=== PATIENT | female | born 1965 | race Caucasian/White ===

== ENCOUNTER 2020-09-14 15:11 | Emergency (ER) | payer BC, SELFPAY ==
[2020-09-14 15:12] VITALS: BP 138/83; PULSE 101; RESP 22; TEMP 37.3; O2SAT 99; BMI 25.8
[2020-09-14] MEDS: morphine 10 MG/ML Syringe 5 MG SC ×2 (16:31→18:54)
--- NOTE | 2020-09-14 17:05 | RAD_ITS ---
STUDY: X-RAY - PELVIS AND RIGHT HIP REASON FOR EXAM: Female, 55 years old. fall, pain TECHNIQUE: 3 views of the pelvis and hip. COMPARISON: None. FINDINGS: There is a non-specific bowel gas pattern. Normal visualized soft tissue structures. Normal bilateral iliac wings, sacroiliac joints and visualized sacrum. Normal bilateral superior and inferior pubic rami. Normal pubic symphysis. Normal bilateral ischial tuberosities. Normal visualized femoral head. Normal acetabulum. Normal hip joint. RAD/HIP, UNI W/ Pelvis 2-3 Views IMPRESSION: Normal x-ray examination of the pelvis and hip. Electronically Signed: Markel Zambrano MD ([place]) at 17:21 EDT , Service support ,
[2020-09-14] MEDS: Mag Hydrox/Al Hydrox/Simeth 30 ML UDC PO (18:28)
--- NOTE | 2020-09-14 18:31 | ED.RN ---
pt c/o mid gastric abd pain, dr. johnson informed, gi cocktail order.
--- NOTE | 2020-09-14 18:36 | ED.VIS.FALL ---
HPI HPI - Fall History of Present Illness Chief Complaint: Fall Informant: patient Occured/Mechanism Occurred: Today Mechanism/Context: Yes same level fall Pain/Injury Quality of Pain: Sharp Associated Symptoms Associated Symptoms: Negative for Parasthesias and Weakness Narrative Narrative: Patient was reaching out with her right foot. It stepped on a dog leash on a tile floor causing her right leg to slip forward. She felt a tearing or pulling sensation in her right buttock and hip area. It hurts to move or even bear weight. The pain was really in the process of falling and not from the impact. She never hit her head or anything else. She is not on any blood thinners. Staying still helps and motion or weightbearing makes it worse. No numbness tingling or weakness. No bowel or bladder dysfunction. PFSH PFSH Medical History Asthma Home Medications albuterol sulfate 1 - 2 puff INHALATION Q6H PRN 09/14/20 [History Last Taken Unknown] bupropion HCl [Wellbutrin XL] 300 mg PO DAILY 09/14/20 [History Last Taken Unknown] fluticasone propion-salmeterol [Advair HFA] 2 puff INHALATION BID 09/14/20 [History Last Taken Unknown] gabapentin 300 mg PO TID PRN 09/14/20 [History Last Taken Unknown] montelukast 10 mg PO DAILY 09/14/20 [History Last Taken Unknown] ondansetron HCl [Zofran] 4 mg PO Q8H PRN #10 tab 09/14/20 [Rx Last Taken Unknown] tramadol 50 mg PO Q6H PRN #12 tab 09/14/20 [Rx Last Taken Unknown] Allergy/AdvReac Type Severity Reaction Status Date / Time grass pollen Allergy Other Verified 09/14/20 15:14 oxycodone AdvReac Vomiting Verified 09/14/20 15:14 Surgical History History of repair of hiatal hernia Social History Smoking Status: Never smoker ROS ROS ED Constitutional Constitutional ED: Denies chills or fever(s) Eyes Eyes: Denies blurry vision or change in vision ENT ENT ED: Denies rhinorrhea Cardiovascular Cardiovascular: Reports other Details: This was a mechanical fall. Patient did not have syncope. ; Denies chest pain or palpitations Respiratory/Chest Respiratory/Chest: Denies dyspnea Gastrointestinal Gastrointestinal: Denies abdominal pain, nausea or vomiting Genitourinary Genitourinary ED: Denies hematuria Musculoskeletal Musculoskeletal: Reports arthralgias and other Details: See history of present illness. ; Denies back pain Integumentary Denies rash Neurologic Neurologic: Denies headache(s) Hematologic/Lymphatic Hematologic/Lymphatic: Denies easy bleeding or easy bruising EXAM Physical Exam Const Vital Signs: 09/14/20 15:12 Temperature 99.2 F H Temperature Source Temporal Pulse Rate 101 H Respiratory Rate 22 H Blood Pressure 138/83 H Blood Pressure Mean 101 Pulse Ox 99 Oxygen Delivery Method Room Air Positive well nourished and well developed General Appearance ED: well developed and NAD HEENT Reports normocephalic atraumatic; Negative for trauma Eyes PERRL Neck full ROM General: Negative for tenderness Chest Wall inspection of chest normal Resp normal respiratory effort and clear to auscultation bilaterally Cardio regular rate, regular rhythm and no murmurs Rate: Negative for tachycardic GI non-tender and non-distended Palpation: soft Back/Spine no CVA tenderness General Back: CVA tenderness Extremity normal to inspection Extremity Narrative: Patient has some tenderness to the posterior aspect of the right hip and the buttock and posterior to the greater trochanteric area. She has pain with abduction. There is no contusion or abrasion. No shortening. No rotation. Distal sensation capillary refill and pulses are normal. Neuro oriented x3 Sensorium / Orientation: alert Psych mental status grossly normal Skin Lesions: no lesions Rashes: no rashes Trauma: Negative for abrasion MDM MDM MDM Narrative Medical decision making narrative: Patient is given a small subcu dose of morphine. It was a bit better. But her pain is coming back. This will be repeated. She also developed some epigastric pain after this. She has been having this for years. She states it is her acid reflux. She requested a GI cocktail. She states it got better after her hiatal hernia surgery but the last 6 months she has been getting it back more. She states this is normal. Her abdomen is still benign. She is comfortable just taking meds for this and not doing further or different evaluation. Her x-ray showed no sign of acute fracture. These were looked at by me and read by radiology. We will get her home on tramadol. Although she has intolerance to oxycodone and hydrocodone she believes she has tolerated tramadol before. And online prescribing report is checked. Radiography Diagnostic Testing: Radiology Impression Hip/Pelvis X-Ray 09/14/20 17:05 IMPRESSION: Normal x-ray examination of the pelvis and hip. Electronically Signed: Markel Zambrano MD ([place]) at 17:21 EDT , Service support , Discharge Plan Triage Chief Complaint: Fall ED Provider: Clarence Hamilton Dx/Rx/DC Orders Clinical Impression: Fall from slipping, Hip strain Instructions: ED Hip Strain Prescriptions: New tramadol 50 mg tablet 50 mg PO Q6H PRN (Reason: pain) Qty: 12 RF: 0 ondansetron HCl [Zofran] 4 mg tablet 4 mg PO Q8H PRN (Reason: nausea and vomiting) Qty: 10 RF: 0 No Action gabapentin 300 mg capsule 300 mg PO TID PRN (Reason: Pain) RF: 0 montelukast 10 mg tablet 10 mg PO DAILY RF: 0 albuterol sulfate 90 mcg/actuation HFA aerosol inhaler 1 - 2 puff INHALATION Q6H PRN (Reason: SOB) RF: 0 bupropion HCl [Wellbutrin XL] 300 mg Tablet Extended Release 24 Hr 300 mg PO DAILY RF: 0 Advair HFA 115-21 mcg/actuation HFA aerosol inhaler 2 puff INHALATION BID RF: 0 Primary Care Provider: Jovany Wilhelm Referrals: Jovany Wilhelm MD [Primary Care Provider] - 2 Days Disposition Disposition: Home, Self Care
[2020-09-14] MEDS: Ondansetron ODT 4 MG Tablet PO (18:54)
[2020-09-14 19:52] VITALS: BP 138/93; PULSE 89; PULSE 91; RESP 16; O2SAT 97
[2020-09-14] MEDS: traMADol 50 MG Tablet 100 MG PO (20:08)
== END 2020-09-14 20:10 | disposition home or self-care (01) ==
PROVIDERS: Emergency Provider Emergency Medicine; PCP Family Medicine
DX: S76.011A Strain of muscle, fascia and tendon of right hip, initial encounter (principal); W01.0XXA Fall on same level from slipping, tripping and stumbling without subsequent striking against object, initial encounter; Y93.9 Activity, unspecified; Y92.89 Other specified places as the place of occurrence of the external cause; Y99.8 Other external cause status; J45.909 Unspecified asthma, uncomplicated; Z79.51 Long term (current) use of inhaled steroids; Z79.899 Other long term (current) drug therapy
CPT/HCPCS: 73502; 96372; 99283

== ENCOUNTER → 2021-08-06 | Outpatient (CLI) | payer BC, SELFPAY ==
[2021-08-11 12:14] LABS: HPV APTIMA, High Risk Negative (Negative)
== END | disposition home or self-care (01) ==
PROVIDERS: PCP Family Medicine; Visit Provider Student in an Organized Health Care Education/Training Program
DX: Z12.4 Encounter for screening for malignant neoplasm of cervix (principal)
CPT/HCPCS: 87624; 88175; G0145

== ENCOUNTER → 2021-08-25 | Outpatient (CLI) | payer BC, SELFPAY ==
--- NOTE | 2021-08-25 09:35 | US_ITS ---
STUDY: ULTRASOUND BREAST - LEFT REASON FOR EXAM: Female, 56 years old. Retraction of the left nipple. TECHNIQUE: Axial and longitudinal images of the LEFT breast were performed with a high resolution ultrasound transducer. # OF IMAGES: 18 COMPARISON: Comparison is made with prior mammogram done earlier today. FINDINGS: LEFT Breast: The retroareolar region of the left breast was examined with ultrasound. No sonographic abnormality is seen. US/Breast Limited Unilateral IMPRESSION: No sonographic abnormality is seen. ASSESSMENT CATEGORY: BIRADS Category 1: Negative. A letter regarding these results will be sent to the patient by the facility within 30 days. Electronically Signed: David Farris MD at 11:54 EDT ,
--- NOTE | 2021-08-25 09:35 | BI_ITS ---
MAMMOGRAPHY - BILATERAL DIAGNOSTIC REASON FOR EXAM: Female, 56 years old. Two-year history of left nipple inversion. PERTINENT HISTORY: Mother with breast cancer. TECHNIQUE: Digital bilateral breast cookie (3D mammographic acquisition) in the CC and MLO projections. 2-D mediolateral oblique (MLO) and craniocaudad (CC) views of both breasts were obtained. CAD: Full Field Digital Mammography with Computer Added Detection was performed. COMPARISON: Comparison is made with prior outside examination dated 02/12/2019. FINDINGS: Breast Composition: The breasts are heterogeneously dense, which may obscure small masses. There are no dominant masses or suspicious calcifications. No other significant abnormalities are identified. There has been no significant change since the prior study. BI/DIAG MAMM W/CAD, BILAT IMPRESSION: Stable bilateral diagnostic mammogram. With the patient''s history of inversion of the left nipple, correlation with ultrasound is recommended. ASSESSMENT CATEGORY: BIRADS Category 0: Incomplete. Need additional imaging evaluation. A letter regarding these results will be sent to the patient by the facility within 30 days. Approximately 10% of breast cancers are not detected by mammography. A normal mammogram should not delay biopsy of a clinically suspicious abnormality. Electronically Signed: David Farris MD at 10:31 EDT ,
== END | disposition home or self-care (01) ==
PROVIDERS: PCP Family Medicine; Visit Provider Student in an Organized Health Care Education/Training Program
DX: N64.53 Retraction of nipple (principal)
CPT/HCPCS: 76642; 77062; 77066; G0279

== ENCOUNTER 2021-12-28 19:58 | Emergency (ER) | payer BC, SELFPAY ==
[2021-12-28 19:59] VITALS: BP 143/94; PULSE 108; RESP 18; TEMP 36.4; O2SAT 99; BMI 27.6
[2021-12-28 20:01] VITALS: BP 143/94; PULSE 108; RESP 18; O2SAT 99
[2021-12-28 20:46] VITALS: BP 138/78; PULSE 98; RESP 16; TEMP 36.6; O2SAT 98
--- NOTE | 2021-12-28 20:56 | EX.ED.DYSGE1 ---
HPI History of Present Illness Chief Complaint: Complaint Informant: patient Onset/Context/Timing Onset: Yesterday Context: Gradual Onset Timing: Continuous Quality: Sharp Location: Left lower abdomen Worsened by: Certain movements Relieved by: Tylenol Narrative Narrative: Patient presents with hematuria and urinary frequency that began last evening. Patient states it came on gradually. Patient states it is gotten worse today. Patient describes her pain as sharp. Patient states her pain is over the left lower abdomen near the midline. Patient states it is worse with certain movements. Patient states she has been taking Tylenol with some relief. Patient denies any fevers or chills. Patient denies any nausea or vomiting. Patient denies any back pain. Patient denies any pain with urination. [facility] Medical History (Updated 12/28/21 @ 22:[address] Eduardo Galindo DO) Asthma Home Medications albuterol sulfate 90 mcg/actuation aerosol inhaler 1 - 2 puff inhalation Q6H PRN SOB 09/14/20 [History Last Taken Unknown] bupropion HCl 300 mg 24 hr tablet, extended release (Wellbutrin XL) 300 mg PO DAILY 09/14/20 [History Last Taken Unknown] fluticasone propionate 115 mcg-salmeterol 21 mcg/actuation HFA inhaler (Advair HFA) 2 puff inhalation BID 09/14/20 [History Last Taken Unknown] gabapentin 300 mg capsule 300 mg PO TID PRN Pain 09/14/20 [History Last Taken Unknown] montelukast 10 mg tablet 10 mg PO DAILY 09/14/20 [History Last Taken Unknown] ondansetron HCl 4 mg tablet (Zofran) 4 mg PO Q8H PRN nausea and vomiting #10 tabs 09/14/20 [Rx Last Taken Unknown] tramadol 50 mg tablet 50 mg PO Q6H PRN pain #12 tabs 09/14/20 [Rx Last Taken Unknown] Allergy/AdvReac Type Severity Reaction Status Date / Time grass pollen Allergy Other Verified 09/14/20 15:14 oxycodone AdvReac Vomiting Verified 09/14/20 15:14 Surgical History (Updated 12/28/21 @ 20:[address] Eduardo Galindo DO) History of repair of hiatal hernia Hx of cholecystectomy Hx of tonsillectomy Social History Smoking Status: Never smoker ROS ROS ED Constitutional Constitutional ED: Denies chills or fever(s) Eyes Eyes: Denies blurry vision or change in vision ENT ENT ED: Denies rhinorrhea or sore throat Cardiovascular Cardiovascular: Denies chest pain or palpitations Respiratory/Chest Respiratory/Chest: Denies cough or dyspnea Gastrointestinal Gastrointestinal: Denies nausea or vomiting Genitourinary Genitourinary ED: Reports hematuria and urinary frequency; Denies dysuria Musculoskeletal Musculoskeletal: Denies back pain or neck pain Integumentary Denies abscess or rash Neurologic Neurologic: Denies headache(s) or weakness Allergic/Immunologic Allergic/Immunologic ED: Denies mouth swelling or urticaria EXAM Physical Exam Const Vital Signs: 12/28/21 19:59 12/28/21 20:01 12/28/21 20:46 Temperature 97.5 F L 97.8 F Temperature Source Temporal Temporal Pulse Rate 108 H 108 H 98 Respiratory Rate 18 18 16 Blood Pressure 143/94 H 143/94 H 138/78 H Blood Pressure Mean 110 110 98 Pulse Ox 99 99 98 Oxygen Delivery Method Room Air Room Air Room Air 12/28/21 21:01 Temperature 97.8 F Temperature Source Temporal Pulse Rate 64 Respiratory Rate 16 Blood Pressure 128/74 H Blood Pressure Mean 92 Pulse Ox 99 Oxygen Delivery Method Room Air Positive well nourished and well developed General Appearance ED: well developed HEENT Reports moist mucous membranes Neck supple and no JVD Resp normal respiratory effort and clear to auscultation bilaterally Cardio regular rate, regular rhythm and no murmurs GI normal to inspection, nondistended, normoactive bowel sounds Palpation: soft and tender LLQ and suprapubic; Negative for guarding or rebound tenderness present Extremity normal to inspection General Extremety ED: Negative for edema or tenderness General Extremity: Negative for edema Neuro oriented x3, CN's II-XII intact bilaterally and no sensory deficits noted Sensorium / Orientation: alert Motor Exam: strength 5/5 throughout Psych mental status grossly normal Skin no rashes or lesions noted MDM MDM MDM Narrative Medical decision making narrative: Urinalysis does not show any evidence of urinary tract infection or hematuria. Patient declined any further testing at this time. Patient was instructed to continue drinking fluids. Patient was instructed to follow-up with her primary care physician in 5 to 7 days. Patient understood and was agreeable with the plan. All questions were answered. Lab Data Attestation: I reviewed the patient's lab results. Labs: Laboratory Results - last 24 hr 12/28/21 20:52 Urine Color Straw Urine Clarity Clear Urine pH 7.0 Ur Specific [place] 1.010 Urine Protein Negative Urine Glucose (UA) Normal Urine Ketones Negative Urine Occult Blood 50 H Urine Nitrite Negative Urine Bilirubin Negative Urine Urobilinogen Normal Ur Leukocyte Esterase 25 H Urine RBC 0-5 SEEN Urine WBC 0-5 SEEN Ur Squamous Epith Cells 0-5 SEEN Urine Bacteria 0 SEEN Urine Mucus 0 SEEN Discharge Plan Triage Chief Complaint: Complaint ED Provider: Eduardo Galindo Dx/Rx/DC Orders Clinical Impression: Dysuria Instructions: ED Dysuria, Uncertain Cause (Adult) Prescriptions: No Action gabapentin 300 mg capsule 300 mg PO TID PRN (Reason: Pain) Label Comments: TAKE 1 CAPSULE BY MOUTH 3 TIMES A DAY montelukast 10 mg tablet 10 mg PO DAILY Label Comments: TAKE 1 TABLET BY MOUTH DAILY AT BEDTIME GENERIC EQUIVALENT FOR SINGULAIR albuterol sulfate 90 mcg/actuation HFA aerosol inhaler 1 - 2 puff INHALATION Q6H PRN (Reason: SOB) Label Comments: INHALE 2 PUFFS BY MOUTH EVERY 6 HOURS NEEDED FOR WHEEZING OR SHORTNESS OF BREATH bupropion HCl [Wellbutrin XL] 300 mg Tablet Extended Release 24 Hr 300 mg PO DAILY Advair HFA 115-21 mcg/actuation HFA aerosol inhaler 2 puff INHALATION BID Label Comments: USE 2 INHALATIONS BY MOUTH TWICE DAILY DIRECTED tramadol 50 mg tablet 50 mg PO Q6H PRN (Reason: pain) Qty: 12 0RF ondansetron HCl [Zofran] 4 mg tablet 4 mg PO Q8H PRN (Reason: nausea and vomiting) Qty: 10 0RF Primary Care Provider: Jovany Wilhelm Referrals: Jovany Wilhelm MD [Primary Care Provider] - 5-7 Days Disposition Disposition: Home, Self Care
[2021-12-28 21:01] VITALS: BP 128/74; PULSE 64; RESP 16; TEMP 36.6; O2SAT 99
[2021-12-28 21:19] LABS: Bacteria 0 SEEN /hpf (None Seen); Mucous, Urine 0 SEEN /hpf (<or=2+)
[2021-12-28 21:25] LABS: Color, Urine Straw (Yellow); Glucose, Dipstick Normal (Normal); Ketone-Dipstick Negative (Negative); Leukocyte Esterase-Dipstick 25 /ul (Negative); Nitrite-Dipstick Negative (Negative); Occult Blood-Urine 50 /ul (Negative); Protein-Dipstick Negative (Negative); Urine Bilirubin Dipstick Negative (Negative); Urine Clarity Clear (Clear); Urine Urobilinogen Normal (Normal)
[2021-12-28 21:36] LABS: Red Blood Cells-Urine 0-5 SEEN /hpf (0-5); Squamous Epithelial Cells - UA 0-5 SEEN /hpf (5-10); White Blood Cells 0-5 SEEN /hpf (0-5)
[2021-12-28 22:13] VITALS: BP 126/78; PULSE 99; RESP 14; TEMP 37.2; O2SAT 100
== END 2021-12-28 22:14 | disposition home or self-care (01) ==
PROVIDERS: Emergency Provider Emergency Medicine; PCP Family Medicine; Visit Provider Emergency Medicine
DX: R30.0 Dysuria (principal); R31.9 Hematuria, unspecified; R35.0 Frequency of micturition; J45.909 Unspecified asthma, uncomplicated
CPT/HCPCS: 81001; 99282